=== PATIENT | female | born 1955 | race Caucasian/White ===

== ENCOUNTER → 2022-05-22 | Outpatient (CLI) | payer MEDICARE, OTHER ==
--- NOTE | 2022-05-22 11:10 | CT ---
EXAMINATION TYPE: CT ankle RT wo con CT DLP: 493.5 mGycm, Automated exposure control for dose reduction was used. DATE OF EXAM: 05/22/2022 10:10 AM COMPARISON: None. CLINICAL INDICATION:Female, 66 years old with history of S82.301D UNSP FX LOWER END OF R TIBIA; PHH, Fx Rt tibia TECHNIQUE: Axial images were obtained of the right tibia without the use of IV contrast. Additional coronal and sagittal reformatted images and soft tissue and bone window were obtained for review. 3-D reconstruction was created on a separate workstation. FINDINGS: Diffuse bony demineralization which limits evaluation. There is callus formation without visualized f racture line involving the medial aspect of the mid diaphysis and distal diaphysis (series 10, image 54 and 20). Appropriate anatomic alignment. No acute fracture or dislocation. Ankle mortise is intact . Plantar calcaneal enthesophyte. Degenerative changes of the midfoot. No significant soft tissue nestor ma. No radiopaque foreign bodies. IMPRESSION: Healed right tibial fracture with callus formation. No fracture line visualized.
== END | disposition home or self-care (01) ==
LOC: RADCTMAIN 09:32
PROVIDERS: ATTEND Orthopaedic Surgery
DX: M06.871 Other specified rheumatoid arthritis, right ankle and foot (principal); S82.301D Unspecified fracture of lower end of right tibia, subsequent encounter for closed fracture with routine healing; M25.571 Pain in right ankle and joints of right foot; X58.XXXD Exposure to other specified factors, subsequent encounter
CPT/HCPCS: 82306